=== PATIENT | female | born 1955 | race Caucasian/White ===

== ENCOUNTER → 2017-01-02 17:04 | Outpatient (CLI) | payer MEDICAID ==
[2016-03-23 08:21] VITALS: BMI 29.1
[~2017-01-02 17:04] MED LIST: CELEXA40 MG PO; IBUPROFEN600 MG PO; KLONOPIN0.5 MG PO; PERCOCET 10/3251 TA1 PO; SYNTHROID137 MCG PO; TYLENOL #4 W/CO1 TAB PO; VYVANSE20 MG PO
== END | disposition home or self-care (01) ==
LOC: D.MAMMO 15:15
DX: Z12.31 Encounter for screening mammogram for malignant neoplasm of breast (principal)